=== PATIENT | female | born 1985 | race Caucasian/White ===

== ENCOUNTER 2017-05-15 19:19 | Emergency (ER) | payer MEDICAID ==
--- NOTE | 2017-05-15 23:11 | EDM.PDOC ---
ED HPI GENERAL MEDICAL PROBLEM - General Chief Complaint: Respiratory Problem Stated Complaint: COLD FOR A WEEK NOT GETTING BETTER Time Seen by Provider: 05/15/17 19:38 Source of Information: Reports: Patient History Limitations: Reports: No Limitations - History of Present Illness INITIAL COMMENTS - FREE TEXT/NARRATIVE: This is a 31-year-old female. Since last a week ago she's been having cold and congestion noted a cough on Thursday runny nose and began having a sore throat and then on Thursday and Thursday of this week she had a low-grade fever of 101-102. The fever seems to have resolved at this time. She did have some body aches on Thursday as well. She complains of congestion she complains of a sore throat complains of cough. She has no nausea vomiting no abdominal pain. She comes to the ER for evaluation. - Related Data Allergies Allergy/AdvReac Type Severity Reaction Status Date / Time cephalexin [From Keflex] Allergy Hives Verified 05/15/17 19:33 ibuprofen [From Motrin] Allergy Hives Verified 05/15/17 19:33 Penicillins Allergy Hives Verified 05/15/17 19:33 Home Meds: Home Meds Azithromycin [IJD: Azithromycin] 250 mg PO DAILY #6 tab 05/15/17 [Rx] Past Medical History Psychiatric History: Reports: Anxiety - Past Surgical History HEENT Surgical History: Reports: Tonsillectomy GI Surgical History: Reports: Cholecystectomy Female Surgical History: Reports: Tubal Ligation Social & Family History - Tobacco Use Smoking Status *Q: Never Smoker - Caffeine Use Caffeine Use: Reports: Soda, Tea - Recreational Drug Use Recreational Drug Use: No ED ROS GENERAL - Review of Systems Review Of Systems: See Below Constitutional: Reports: Fever, Chills, Malaise HEENT: Reports: Rhinitis, Throat Pain Respiratory: Reports: Cough. Denies: Shortness of Breath, Wheezing Cardiovascular: Reports: No Symptoms Endocrine: Reports: No Symptoms GI/Abdominal: Reports: No Symptoms : Reports: No Symptoms Musculoskeletal: Reports: No Symptoms Skin: Reports: No Symptoms Neurological: Reports: No Symptoms Psychiatric: Reports: No Symptoms ED EXAM, GENERAL - Physical Exam Exam: See Below Exam Limited By: No Limitations General Appearance: Alert, WD/WN, No Apparent Distress Eye Exam: Bilateral Eye: Normal Inspection Ears: Normal External Exam, Normal Canal, Normal TMs Nose: Normal Inspection, Nasal Drainage Throat/Mouth: Normal Inspection, Normal Lips, Normal Voice, No Airway Compromise , Other (Tonsils are inflamed but no exudates are noted) Head: Normocephalic Neck: Supple Respiratory/Chest: No Respiratory Distress, Lungs Clear, Normal Breath Sounds Cardiovascular: Regular Rate, Rhythm, No Murmur GI/Abdominal: Soft, Non-Tender Back Exam: Full Range of Motion Extremities: Normal Inspection, Normal Range of Motion Neurological: Alert, Oriented Psychiatric: Normal Affect, Normal Mood Skin Exam: Warm, Dry Course - Vital Signs Last Recorded V/S: Last Vital Signs Temp 97.4 F 05/15/17 19:33 Pulse 94 05/15/17 19:33 Resp 16 05/15/17 19:33 BP 120/81 05/15/17 19:33 Pulse Ox 94 L 05/15/17 19:33 - Orders/Labs/Meds Orders: Active Orders 24 hr Category Date Time Status Chest 2V [CR] Stat Exams 05/15/17 20:00 Taken Labs: Laboratory Tests 05/15/17 Range/Units 20:14 WBC 4.02 (3.98-10.04) K/mm3 RBC 4.82 (3.98-5.22) M/mm3 Hgb 12.1 (11.2-15.7) gm/L Hct 37.9 (34.1-44.9) % MCV 78.6 L (79.4-94.8) fl MCH 25.1 L (25.6-32.2) pg MCHC 31.9 L (32.2-35.5) g/dl RDW Std Deviation 44.0 (36.4-46.3) fL Plt Count 233 (182-369) K/mm3 MPV 9.6 (9.4-12.3) fl Neut % (Auto) 43.8 (34.0-71.1) % Lymph % (Auto) 41.5 (19.3-51.7) % [place] % (Auto) 9.7 (4.7-12.5) % Eos % (Auto) 4.5 (0.7-5.8) Baso % (Auto) 0.5 (0.1-1.2) % Neut # (Auto) 1.76 (1.56-6.13) K/mm3 Lymph # (Auto) 1.67 (1.18-3.74) K/mm3 [place] # (Auto) 0.39 H (0.24-0.36) K/mm3 Eos # (Auto) 0.18 (0.04-0.36) K/mm3 Baso # (Auto) 0.02 (0.01-0.08) K/mm3 - Radiology Interpretation Free Text/Narrative:: Chest x-ray does not show any acute changes. - Re-Assessments/Exams Free Text/Narrative Re-Assessment/Exam: 05/15/17 23:07 I spoke to the patient regarding her test results. The chest x-ray does not show any acute changes, the flu was negative the CBC was normal but she does have a positive strep screen. Departure - Departure Time of Disposition: 23:07 Disposition: Home, Self-Care 01 Condition: Good Clinical Impression: Strep pharyngitis Upper respiratory infection Qualifiers: URI type: unspecified URI Qualified Code(s): J06.9 - Acute upper respiratory infection, unspecified Acute bronchitis Qualifiers: Bronchitis organism: unspecified organism Qualified Code(s): J20.9 - Acute bronchitis, unspecified - Discharge Information Prescriptions: Azithromycin [IJD: Azithromycin] 250 mg PO DAILY #6 tab Referrals: Regina Camargo, [employer] [Primary Care Provider] - Forms: ED Department Discharge, ED Return to Work/School Form Additional Instructions: Rest and sleep as much as possible, drink lots of fluids and avoid sugar since strep loves sugar, get the antibiotics tomorrow and start taking them as prescribed, recheck with your family doctor later this week, return to the ER if your symptoms worsen, be certain to take some Tylenol or ibuprofen as needed for fever - My Orders Last 24 Hours: My Active Orders 05/15/17 20:00 Chest 2V [CR] Stat - Assessment/Plan Last 24 Hours: My Active Orders 05/15/17 20:00 Chest 2V [CR] Stat
--- NOTE | 2017-05-17 17:47 | CR ---
Chest: Two views of the chest were obtained. Comparison: No prior chest x-ray. Heart size and mediastinum are normal. Lungs are clear. Bony structures are unremarkable. Impression: 1. Nothing acute is identified on two-view chest x-ray. Diagnostic code #1
== END 2017-05-15 23:30 | disposition home or self-care (01) ==
LOC: JD.ED 19:19
DX: J02.0 Streptococcal pharyngitis (principal); J20.9 Acute bronchitis, unspecified; Z79.2 Long term (current) use of antibiotics; Z88.0 Allergy status to penicillin; Z88.1 Allergy status to other antibiotic agents; Z88.6 Allergy status to analgesic agent
CPT/HCPCS: 36415; 71046; 71046-26; 85025; 87430; 87804; 99284

== ENCOUNTER 2017-12-08 19:37 | Emergency (ER) | payer MEDICAID ==
--- NOTE | 2017-12-08 20:33 | EDM.PDOC ---
ED HPI GENERAL MEDICAL PROBLEM - General Chief Complaint: TIN FLIPPER Problem Stated Complaint: HAD PERIOD FOR 2 WEEKS Time Seen by Provider: 12/08/17 20:19 Source of Information: Reports: Patient History Limitations: Reports: No Limitations - History of Present Illness INITIAL COMMENTS - FREE TEXT/NARRATIVE: Patient is a 32-year-old female with a history anxiety/depression, irregular periods, and tubal ligation presents to the ED with a 2 week history of heavy vaginal bleeding. States she's been saturating 2 pads every 2 hours since onset. This is abnormal for her. She does have a history of irregular periods but not as heavy. She has some lower abdominal cramping consistent with menstrual cycle. She attempted to make appointment with PCP put cannot be seen in 2 weeks. There's been no fever, nausea or vomiting, dysuria, or abnormal vaginal discharge. There is no family history of endometrial/ovarian cancer. She has no history of uterine fibroids. history includes 2 para 2. She is currently on Lexapro only. Surgical history tubal ligation, cholecystectomy, and tonsillectomy. In the past been treated for Trichomonas 15 years ago. Patient does not smoke, use alcohol, use recreational drugs. She denies any fever, night sweats, recent weight loss, bloating sensation, significant pain, dysuria, dizziness, or abnormal vaginal discharge. - Related Data Allergies Allergy/AdvReac Type Severity Reaction Status Date / Time cephalexin [From Keflex] Allergy Hives Verified 12/08/17 19:46 ibuprofen [From Motrin] Allergy Hives Verified 12/08/17 19:46 Penicillins Allergy Hives Verified 12/08/17 19:46 Home Meds: Home Meds Escitalopram [Lexapro] 10 mg PO DAILY 12/08/17 [History] Past Medical History Psychiatric History: Reports: Anxiety, Depression - Past Surgical History HEENT Surgical History: Reports: Tonsillectomy GI Surgical History: Reports: Cholecystectomy Female Surgical History: Reports: Tubal Ligation, Other (See Below) Other Female Surgeries/Procedures: irregular periods Social & Family History - Family History Family Medical History: Noncontributory - Tobacco Use Smoking Status *Q: Never Smoker - Caffeine Use Caffeine Use: Reports: Energy Drinks, Soda, Tea - Recreational Drug Use Recreational Drug Use: No ED ROS GENERAL - Review of Systems Review Of Systems: ROS reveals no pertinent complaints other than HPI. ED EXAM, GENERAL - Physical Exam Exam: See Below Exam Limited By: No Limitations General Appearance: Alert, WD/WN, No Apparent Distress Eye Exam: Bilateral Eye: Normal Inspection Ears: Hearing Grossly Normal Nose: Normal Inspection Throat/Mouth: Normal Inspection, Normal Oropharynx, Normal Voice, No Airway Compromise Neck: Normal Inspection, Supple Respiratory/Chest: No Respiratory Distress, Lungs Clear, Normal Breath Sounds, Chest Non-Tender Cardiovascular: Normal Peripheral Pulses, Regular Rate, Rhythm Peripheral Pulses: 2+: Radial (L) GI/Abdominal: Normal Bowel Sounds, Soft, Non-Tender, No Organomegaly, No Distention Back Exam: Normal Inspection Extremities: Normal Inspection, Normal Range of Motion, Non-Tender Neurological: Alert, Oriented, CN II-XII Intact, Normal Cognition, No Motor/ Sensory Deficits Psychiatric: Normal Affect, Normal Mood Skin Exam: Warm, Dry, Intact, Normal Color Course - Vital Signs Last Recorded V/S: Last Vital Signs Temp 97.6 F 12/08/17 19:43 Pulse 100 12/08/17 19:43 Resp 18 12/08/17 19:43 BP 126/81 12/08/17 19:43 Pulse Ox 100 12/08/17 19:43 - Orders/Labs/Meds Orders: Active Orders 24 hr Category Date Time Status HCG QUALITATIVE,URINE [URCHEM] Stat Lab 12/08/17 20:46 Ordered Labs: Laboratory Tests 12/08/17 12/08/17 12/08/17 Range/Units 20:46 20:46 20:50 WBC 7.90 (3.98-10.04) K/mm3 RBC 4.25 (3.98-5.22) M/mm3 Hgb 10.9 L (11.2-15.7) gm/L Hct 34.4 (34.1-44.9) % MCV 80.9 (79.4-94.8) fl MCH 25.6 (25.6-32.2) pg MCHC 31.7 L (32.2-35.5) g/dl RDW Std Deviation 50.9 H (36.4-46.3) fL Plt Count 208 (182-369) K/mm3 MPV 9.1 L (9.4-12.3) fl Neutrophils % (Manual) 46 (40-60) % Band Neutrophils % 0 (0-10) % Lymphocytes % (Manual) 48 H (20-40) % Atypical Lymphs % 0 % Monocytes % (Manual) 5 (2-10) % Eosinophils % (Manual) 1 (0.7-5.8) % Basophils % (Manual) 0 L (0.1-1.2) Platelet Estimate Adequate RBC Morph Comment Normal Sodium (136-145) mEq/L Potassium (3.5-5.1) mEq/L Chloride (98-107) mEq/L Carbon Dioxide (21-32) mEq/L Anion Gap (5-15) BUN (7-18) mg/dL Creatinine (0.55-1.02) mg/dL Est Cr Clr Drug Dosing mL/min Estimated GFR (MDRD) (>60) mL/min BUN/Creatinine Ratio (14-18) Glucose (74-106) mg/dL Calcium (8.5-10.1) mg/dL Total Bilirubin (0.2-1.0) mg/dL AST (15-37) U/L ALT (14-59) U/L Alkaline Phosphatase (46-116) U/L C-Reactive Protein (<1.0) mg/dL Total Protein (6.4-8.2) g/dl Albumin (3.4-5.0) g/dl Globulin gm/dL Albumin/Globulin Ratio (1-2) TSH 3rd Generation (0.358-3.74) uIU/mL Urine Color Dark yellow (Yellow) Urine Appearance Cloudy H (Clear) Urine pH 5.5 (5.0-8.0) Ur Specific [place] > or = 1.030 (1.005-1.030) Urine Protein 1+ H (Negative) Urine Glucose (UA) Negative (Negative) Urine Ketones Negative (Negative) Urine Occult Blood 3+ H (Negative) Urine Nitrite Negative (Negative) Urine Bilirubin Negative (Negative) Urine Urobilinogen 0.2 (0.2-1.0) Ur Leukocyte Esterase Negative (Negative) Urine RBC >100 H (0-5) /hpf Urine WBC 0-5 (0-5) /hpf Ur Epithelial Cells 5-10 H (0-5) /hpf Urine Bacteria Many H (FEW) /hpf Urine Mucus Not seen (FEW) /hpf Urine HCG, Qual Negative (NEGATIVE) 12/08/17 Range/Units 20:50 WBC (3.98-10.04) K/mm3 RBC (3.98-5.22) M/mm3 Hgb (11.2-15.7) gm/L Hct (34.1-44.9) % MCV (79.4-94.8) fl MCH (25.6-32.2) pg MCHC (32.2-35.5) g/dl RDW Std Deviation (36.4-46.3) fL Plt Count (182-369) K/mm3 MPV (9.4-12.3) fl Neutrophils % (Manual) (40-60) % Band Neutrophils % (0-10) % Lymphocytes % (Manual) (20-40) % Atypical Lymphs % % Monocytes % (Manual) (2-10) % Eosinophils % (Manual) (0.7-5.8) % Basophils % (Manual) (0.1-1.2) Platelet Estimate RBC Morph Comment Sodium 142 (136-145) mEq/L Potassium 3.6 (3.5-5.1) mEq/L Chloride 106 (98-107) mEq/L Carbon Dioxide 27 (21-32) mEq/L Anion Gap 12.6 (5-15) BUN 13 (7-18) mg/dL Creatinine 0.8 (0.55-1.02) mg/dL Est Cr Clr Drug Dosing 99.08 mL/min Estimated GFR (MDRD) > 60 (>60) mL/min BUN/Creatinine Ratio 16.3 (14-18) Glucose 108 H (74-106) mg/dL Calcium 8.4 L (8.5-10.1) mg/dL Total Bilirubin 0.5 (0.2-1.0) mg/dL AST 24 (15-37) U/L ALT 53 (14-59) U/L Alkaline Phosphatase 98 (46-116) U/L C-Reactive Protein 2.0 H* (<1.0) mg/dL Total Protein 6.8 (6.4-8.2) g/dl Albumin 3.2 L (3.4-5.0) g/dl Globulin 3.6 gm/dL Albumin/Globulin Ratio 0.9 L (1-2) TSH 3rd Generation 4.576 H (0.358-3.74) uIU/mL Urine Color (Yellow) Urine Appearance (Clear) Urine pH (5.0-8.0) Ur Specific [place] (1.005-1.030) Urine Protein (Negative) Urine Glucose (UA) (Negative) Urine Ketones (Negative) Urine Occult Blood (Negative) Urine Nitrite (Negative) Urine Bilirubin (Negative) Urine Urobilinogen (0.2-1.0) Ur Leukocyte Esterase (Negative) Urine RBC (0-5) /hpf Urine WBC (0-5) /hpf Ur Epithelial Cells (0-5) /hpf Urine Bacteria (FEW) /hpf Urine Mucus (FEW) /hpf Urine HCG, Qual (NEGATIVE) - Re-Assessments/Exams Free Text/Narrative Re-Assessment/Exam: Initial lab studies will include: CBC, CBC, chem 14, CRP, TSH, and UA. HGB 10.9. HCG negative. I Did speak with Dr. Castaneda. Does not suggest any further studies or treatments here in the E.D. Have the patient call her office in the a.m. for appt to be evaluated this coming week. May make an appt with Dr. Bosch her partner if unable to get in with her. 12/08/17 21:55 TSH is 4.576. Cr 0.8. CRP 2.0. 12/08/17 UA cloudy, protein 1+, occult blood 3+, Urine RBC >100, Urine bacteria many, epithelial cells 5-10. Discussed conversation with Dr. Castaneda with the patient. She agrees with plan of following up in the next week. The patient remained hemodynamically stable while under my care in the E.D. I discussed the concerning symptoms for which to return to the E.D. with the patient. The patient verbalized understanding. All questions were answered. Departure - Departure Time of Disposition: 21:24 Disposition: Home, Self-Care 01 Condition: Good Clinical Impression: Metrorrhagia, Elevated TSH - Discharge Information Instructions: Abnormal Uterine Bleeding, Metrorrhagia Referrals: Edilma Cadena PA-C [Primary Care Provider] - Kathy Castaneda MD [Physician] - Rita Bosch MD [Physician] - Yunier Herrera MD [Physician] - Naga Barnard MD [Physician] - Forms: ED Department Discharge Additional Instructions: As discussed please follow up with a TIN FLIP[facility] specialist of your choice. Call and make an appointment to be evaluated in the next week. Provided contact information for Dr. Castaneda the TIN FLIP[facility] specialist I spoke to earlier this evening in relation to your situation. In addition her partner is Dr. Bosch. Dr. Herrera and Dr. Barnard both work at [facility] and to be contacted for appointments as well. Please monitor the frequency bleeding. Return to the ED if you develop any new or worsening symptoms. In addition your TSH levels which is a indicator on how your thyroid is functioning was high. This is suggesting you may have hypothyroidism which can be easily treated with medications. Additional testing is required. This also could be a culprit to your abnormal vaginal bleeding. - My Orders Last 24 Hours: My Active Orders 12/08/17 20:46 HCG QUALITATIVE,URINE [URCHEM] Stat - Assessment/Plan Last 24 Hours: My Active Orders 12/08/17 20:46 HCG QUALITATIVE,URINE [URCHEM] Stat
== END 2017-12-08 22:08 | disposition home or self-care (01) ==
LOC: JD.ED 19:37
DX: N92.1 Excessive and frequent menstruation with irregular cycle (principal); R79.89 Other specified abnormal findings of blood chemistry; Z88.0 Allergy status to penicillin; Z88.1 Allergy status to other antibiotic agents
CPT/HCPCS: 36415; 80053; 81001; 81025; 84443; 85007; 85027; 86140; 99283; 99284

== ENCOUNTER 2018-08-10 01:30 | Emergency (ER) | payer MEDICAID ==
[2018-08-10] MEDS ORDERED: Acetaminophen/oxyCODONE 325-5 MG Tab PO ONE (02:21)
[2018-08-10] MEDS ORDERED: Amoxicillin 500 MG Cap PO ONE (02:21)
--- NOTE | 2018-08-10 02:25 | EDM.PDOC ---
ED HPI GENERAL MEDICAL PROBLEM - General Chief Complaint: ENT Problem Stated Complaint: RIGHT SIDE FACE TOOTH PAIN MOVING TO EAR Time Seen by Provider: 08/10/18 01:53 Source of Information: Reports: Patient, RN Notes Reviewed - History of Present Illness INITIAL COMMENTS - FREE TEXT/NARRATIVE: 32 year old female presents with dental pain. R lower post molar cavitated and broke off about 2 yrs ago. Started becoming painful a few days ago and now having severe pain. some chills but no fever. Right Lower Tooth/Teeth Pain Score (Numeric/FACES): 7 - Related Data Allergies Allergy/AdvReac Type Severity Reaction Status Date / Time cephalexin [From Keflex] Allergy Hives Verified 12/08/17 19:46 ibuprofen [From Motrin] Allergy Hives Verified 12/08/17 19:46 Penicillins Allergy Hives Verified 12/08/17 19:46 Home Meds: Home Meds Escitalopram [Lexapro] 10 mg PO DAILY 12/08/17 [History] Acetaminophen/HYDROcodone [[place] 325-5 MG] 1 tab PO Q6H PRN #20 tablet 08/10/18 [Rx] Past Medical History Psychiatric History: Reports: Anxiety, Depression - Past Surgical History HEENT Surgical History: Reports: Tonsillectomy GI Surgical History: Reports: Cholecystectomy Female Surgical History: Reports: Tubal Ligation, Other (See Below) Other Female Surgeries/Procedures: irregular periods Social & Family History - Family History Family Medical History: Noncontributory - Tobacco Use Smoking Status *Q: Never Smoker - Caffeine Use Caffeine Use: Reports: Soda, Tea - Recreational Drug Use Recreational Drug Use: No ED ROS ENT - Review of Systems Review Of Systems: See Below Constitutional: Reports: Chills. Denies: Fever HEENT: Reports: Dental Pain. Denies: Throat Pain Respiratory: Denies: Shortness of Breath Cardiovascular: Denies: Chest Pain GI/Abdominal: Denies: Abdominal Pain, Vomiting Musculoskeletal: Reports: No Symptoms Skin: Reports: No Symptoms ED EXAM, ENT - Physical Exam Exam: See Below General Appearance: Alert, Moderate Distress Mouth/Throat: Other (R lower post molar is broken off at gum line, gum is mildly swollen, no drainage) Head: Facial Swelling (R face very mildly swollen, tender along R lower post jaw ) Neck: Supple. No: Lymphadenopathy (L), Lymphadenopathy (R) Respiratory/Chest: No Respiratory Distress Neurological: Alert Skin: Warm, Dry, Normal Color Course - Vital Signs Last Recorded V/S: Last Vital Signs Temp 97.7 F 08/10/18 01:38 Pulse 97 08/10/18 01:38 Resp 18 08/10/18 01:38 BP 150/89 H 08/10/18 01:38 Pulse Ox 98 08/10/18 01:38 - Orders/Labs/Meds Meds: Medications Discontinued Medications Generic Name Dose Route Start Last Admin Trade Name Gustavo PRN Reason Stop Dose Admin Amoxicillin 1,000 mg 08/10/18 02:21 08/10/18 02:29 Amoxil PO 08/10/18 02:22 1,000 mg ONETIME ONE Administration Oxycodone/Acetaminophen 1 tab 08/10/18 02:21 08/10/18 02:29 Percocet 325-5 Mg PO 08/10/18 02:22 1 tab ONETIME ONE Administration - Re-Assessments/Exams Free Text/Narrative Re-Assessment/Exam: 08/10/18 02:24 PCN listed as allergy, however when asked about it she states it was 15 year ago and developed a small rash "on her face", no generalized hives or breathing difficulty so she does not know if that was a true allergic reaction or not. Departure - Departure Time of Disposition: 02:31 Disposition: Home, Self-Care 01 Condition: Fair Clinical Impression: Pain, dental - Discharge Information Prescriptions: Acetaminophen/HYDROcodone [[place] 325-5 MG] 1 tab PO Q6H PRN #20 tablet PRN Reason: Pain Referrals: Edilma Cadena PA-C [Primary Care Provider] - Forms: ED Department Discharge Additional Instructions: amoxicillin antibioitc 1000 mg or two 500 mg tablets twice daily for 1 week or until gone. tylenol alternating with ibuprofen for mild to moderate pain or hydrocodone if needed for severe pain. Do not take tylenol and hydrocodone at the same time. See dentist as soon as possible to have the tooth extracted.
== END 2018-08-10 02:42 | disposition home or self-care (01) ==
LOC: JD.ED 01:30
DX: K08.89 Other specified disorders of teeth and supporting structures (principal); K03.81 Cracked tooth; Z79.899 Other long term (current) drug therapy; F41.9 Anxiety disorder, unspecified; F32.9 Major depressive disorder, single episode, unspecified; Z88.0 Allergy status to penicillin; Z88.1 Allergy status to other antibiotic agents; Z88.6 Allergy status to analgesic agent
CPT/HCPCS: 99282; A9270; 99283

== ENCOUNTER 2019-03-17 06:09 | Emergency (ER) | payer MEDICAID, OTHER ==
[2019-03-17] MEDS ORDERED: Acetaminophen/oxyCODONE 325-5 MG Tab PO ONE (06:32)
[2019-03-17] MEDS ORDERED: Ondansetron 4 MG Tab.DIS PO PRN (06:32)
--- NOTE | 2019-03-17 06:37 | EDM.PDOC ---
ED HPI GENERAL MEDICAL PROBLEM - General Chief Complaint: Back Pain or Injury Stated Complaint: BACK PAIN Time Seen by Provider: 03/17/19 06:30 Source of Information: Reports: Patient History Limitations: Reports: No Limitations - History of Present Illness INITIAL COMMENTS - FREE TEXT/NARRATIVE: 33-year-old female attends the ED due to increasing left-sided low back pain. She's had pain in her lower backs for the last week and is progressively getting worse. Pain is now radiating into the left groin along the iliac crest. He has a very difficult time getting up out of bed or from a seated position. Has not noticed any change in her urine. Movement certainly makes the pain much worse. No previous problems with her lower back. No recent slips or falls. She is markedly overweight. Describes the pain as being constant, aggravated by movement. It is not ra radiating down the leg. She does have some pain in her left buttock. Onset: Sudden Onset Date: 03/10/19 Duration: Day(s):, Constant, Getting Worse Location: Reports: Back (Left low back. She can feel it up as high as her shoulder blade on the left side) Quality: Reports: Ache ( also the pain is lower back referred to the left hip area.), Other (Constant deep aching pain occasionally sharp and stabbing with certain movements) Severity: Severe (8 out of 10) Improves with: Reports: Medication (Aleve 2 tablets every 8 hours has not been helping much we are to relieve the pain.) Worsens with: Reports: Movement Context: Denies: Activity, Exercise (Especially trying to get up from the lying down position.), Lifting, Sick Contact, Trauma, Other Associated Symptoms: Denies: No Other Symptoms, Confusion, Chest Pain, Cough, cough w sputum, Diaphoresis, Fever/Chills, Headaches, Loss of Appetite, Malaise , Nausea/Vomiting, Rash, Seizure, Shortness of Breath, Syncope, Weakness 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 (Aleve 2 tablets every 8 hours.) Left Lower Back Pain Score (Numeric/FACES): 8 - Related Data Allergies Allergy/AdvReac Type Severity Reaction Status Date / Time cephalexin [From Keflex] Allergy Hives Verified 03/17/19 06:21 ibuprofen [From Motrin] Allergy Hives Verified 03/17/19 06:21 Penicillins Allergy Hives Verified 03/17/19 06:21 Home Meds: Home Meds Escitalopram [Lexapro] 10 mg PO DAILY 12/08/17 [History] Diclofenac Sodium [Voltaren] 75 mg PO BIDMEALS #20 tab.cr 03/17/19 [Rx] oxyCODONE HCl/Acetaminophen [Percocet 10-325 mg Tablet] 1 each PO Q4H #28 tablet 03/17/19 [Rx] predniSONE [Prednisone] 20 mg PO ASDIRECTED #18 tablet 03/17/19 [Rx] Past Medical History Psychiatric History: Reports: Anxiety, Depression Endocrine/Metabolic History: Reports: Obesity/BMI 30+ - Past Surgical History HEENT Surgical History: Reports: Tonsillectomy GI Surgical History: Reports: Cholecystectomy Female Surgical History: Reports: Tubal Ligation, Other (See Below) Other Female Surgeries/Procedures: irregular periods Social & Family History - Family History Family Medical History: Noncontributory - Tobacco Use Smoking Status *Q: Never Smoker Second Hand Smoke Exposure: No - Caffeine Use Caffeine Use: Reports: None - Recreational Drug Use Recreational Drug Use: No - Living Situation & Occupation Living situation: Reports: Single Occupation: Employed ED ROS GENERAL - Review of Systems Review Of Systems: See Below Constitutional: Reports: Fatigue. Denies: Fever, Chills, Malaise, Weakness HEENT: Reports: No Symptoms (From not sleeping well.) Respiratory: Reports: No Symptoms Cardiovascular: Reports: Dyspnea on Exertion, Lightheadedness (Occasionally with standing.). Denies: Chest Pain, Blood Pressure Problem, Claudication, Orthopnea Endocrine: Reports: Fatigue GI/Abdominal: Reports: No Symptoms : Reports: Frequency Musculoskeletal: Reports: Back Pain Skin: Reports: No Symptoms (Recent problems with low back pain has not been a chronic problem for her.) Neurological: Reports: No Symptoms Psychiatric: Reports: Anxiety, Depression Hematologic/Lymphatic: Reports: No Symptoms (On Lexapro 20 mg once daily) Immunologic: Reports: No Symptoms ED EXAM,LOWER BACK PAIN/INJURY - Physical Exam Exam: See Below Exam Limited By: No Limitations General Appearance: Alert, WD/WN, Moderate Distress, Other (Vital signs are stable. Blood pressure is only 108/83.) GI/Abdominal: Normal Bowel Sounds, Soft, Non-Tender, No Organomegaly, No Mass, Pelvis Stable, Other (Abdominal girth limits ability to palpate solid organs.) Back Exam: Normal Inspection, Decreased Range of Motion, Paraspinal Tenderness ( She has paraspinal muscle tenderness all the way up to thoracic 7 vertebra on the left side.), Vertebral Tenderness (12 point of tenderness is over the L2-3 and L3-4 facet joints on the left side. There is also moderate left sacroiliac pain in the upper two thirds of the joint. No pain in the right sacroiliac joint ). No: Full Range of Motion, CVA Tenderness (L), CVA Tenderness (R) Neurological: Alert, Normal Mood/Affect, Normal Dorsiflexion, CN II-XII Intact, Normal Plantar Flexion, Normal Gait, Normal Reflexes, Other (Clinical no evidence of nerve root compression.). No: Straight Leg Raise (L), Straight Leg Raise (R) Psychiatric: Normal Affect, Normal Mood Skin Exam: Warm, Dry, Intact, Normal Color, No Rash Course - Vital Signs Last Recorded V/S: Last Vital Signs Temp 36.3 C 03/17/19 06:16 Pulse 90 03/17/19 06:16 Resp 18 03/17/19 06:16 BP 108/83 03/17/19 06:16 Pulse Ox 100 03/17/19 06:16 - Orders/Labs/Meds Orders: Active Orders 24 hr Category Date Time Status Ondansetron [Zofran ODT] Med 03/17/19 06:32 Active 4 mg PO Q4H PRN Medication Orders Ondansetron HCl (Zofran Odt) 4 mg PO Q4H PRN PRN Reason: Nausea/Vomiting Last Admin: 03/17/19 06:49 Dose: 4 mg Meds: Medications Generic Name Dose Route Start Last Admin Trade Name Freq PRN Reason Stop Dose Admin Ondansetron HCl 4 mg 03/17/19 06:32 03/17/19 06:49 Zofran Odt PO 4 mg Q4H PRN Administration Nausea/Vomiting Discontinued Medications Generic Name Dose Route Start Last Admin Trade Name Freq PRN Reason Stop Dose Admin Oxycodone/Acetaminophen 2 tab 03/17/19 06:32 03/17/19 06:49 Percocet 325-5 Mg PO 03/17/19 06:33 2 tab ONETIME ONE Administration - Radiology Interpretation Free Text/Narrative:: 33-year-old female presents to the ED for evaluation of left lower back pain gradually worsening over the last week. No known falls or injuries. Examination reveals paraspinal muscle spasm from thoracic [address] down to L5 on the left side. Point of maximal tenderness is over the L2-3 and L3-4 facet joints. Also moderate tenderness throughout at least two thirds of the superior aspect of the left sacroiliac joint in comparison to the right. I am going to have CT scan done of her lower back as I think plain films will not be useful due to her size. She'll be given 2 Percocet 5/3/25 milligram tablets by mouth with Zofran 4 mg sublingual for pain relief. - Re-Assessments/Exams Free Text/Narrative Re-Assessment/Exam: 03/17/19 07:04 CT of the lumbar spine reveals no obvious compression fractures. 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 No obvious disc herniations and no significant facet joint arthritis. Her pain clinically is coming from facet joint irritation. I am going to place her on Percocet tabs 5/325 mg one or 2 every 4-6 hours as needed for pain relief in combination with Voltaren 75 mg extended release twice daily for 10 days. She will also be placed on prednisone 20 mg twice daily for 6 days with breakfast and supper and then one in the morning only for another 6 days to reduce inflammation and pain. He will be placed off of work for the next week and advise follow-up with your personal care physician before deciding if she can return to work. 03/17/19 07:13 , report available from Dr. Pires--radiologist. Findings T12-L1 posterior disc is preserved no central canal stenosis or neural foraminal stenosis identified. L1-2 level posterior disc is preserved no central canal stenosis or neural foraminal stenosis identified. L2-3 posterior disc is preserved no central canal stenosis or neural foraminal stenosis identified. L3- 4 very minimal circumferential disc bulge is noted. Posterior disc maintains a concrete margin. No central canal stenosis or neural foraminal stenosis is identified. At the L4-5 level mild disc space narrowing is seen. Large disc herniation appears to be present posteriorly to the midline and slightly eccentric to the right side. Of note the patient's pain is on the left side. This causes significant central canal stenosis. Neural foramina pain where the nerve root exit. L5-S1 mild disc space narrowing noted. Slight circumferential disc bulge is noted. No central canal stenosis or neural foraminal stenosis identified. Slight osteophytes are noted anteriorly at this level as well as degenerative endplate signal changes. Impression: large disc herniation at L4-5 causing central canal stenosis. Departure - Departure Time of Disposition: 07:05 Disposition: Home, Self-Care 01 Condition: Fair Clinical Impression: Facet joint disease of lumbosacral region, Degenerative lumbar disc - Discharge Information *PRESCRIPTION DRUG MONITORING PROGRAM REVIEWED*: Not Applicable *COPY OF PRESCRIPTION DRUG MONITORING REPORT IN PATIENT YVROSE: Not Applicable Prescriptions: Diclofenac Sodium [Voltaren] 75 mg PO BIDMEALS #20 tab.cr oxyCODONE HCl/Acetaminophen [Percocet 10-325 mg Tablet] 1 each PO Q4H #28 tablet predniSONE [Prednisone] 20 mg PO ASDIRECTED #18 tablet Instructions: Facet Syndrome, Pain Medicine Instructions, [id number] Referrals: Edilma Cadena PA-C [Primary Care Provider] - Forms: ED Department Discharge, ED Return to Work/School Form Additional Instructions: Evaluation the emergency room today in regards to gradually worsening left- sided low back pain radiating into the left hip and groin area. Examination reveals marked paraspinal muscle spasm on the left side coming from the lumbar vertebra which are the lower 5 bones in your back. The CT scan of the lumbar spine does not reveal any obvious deformities of the bones or significant arthritis in the facet joints. It does however revealed a large disc bulge centrally into the bile canal at the lumbar 4-5 level. It appears to be present posteriorly to the midline and slightly eccentric to the right side which does not correlate with your area of pain. Her 40s unclear if this is the cause of your current pain syndrome. Suggest off work for the next week until follow-up with personal care physician in one week's time to determine if you're fit to return to work. If you are not better in one week's time day will need to be referred to physiotherapy. Treatment is to be anti-inflammatory medication Voltaren 75 mg twice daily for the next 10 days. You are to discontinue using Aleve. Use prednisone 20 mg twice daily with breakfast and supper for 6 days and then 1 in the morning only for another 6 days to further reduce inflammation and pain. Pain medication is to be Percocet 10/325 mg --ideally one tablet every 4-6 hours necessary for pain relief. Suggest MiraLAX powder 17 g once daily to prevent constipation caused by pain medications. Suggest follow- up with her personal care provider in 7 days time to see if you are fit to return to work. Sepsis Event Note - Evaluation Sepsis Screening Result: No Definite Risk - Focused Exam Vital Signs: Vital Signs Temp Pulse Resp BP Pulse Ox 03/17/19 06:16 36.3 C 90 18 108/83 100 Date Exam was Performed: 03/17/19 Time Exam was Performed: : - My Orders Last 24 Hours: My Active Orders 03/17/19 06:32 Ondansetron [Zofran ODT] 4 mg PO Q4H PRN - Assessment/Plan Last 24 Hours: My Active Orders 03/17/19 06:32 Ondansetron [Zofran ODT] 4 mg PO Q4H PRN
--- NOTE | 2019-03-17 07:09 | CT ---
CT lumbar spine Technique: Multiple axial sections were obtained from the lower T12 level inferiorly through the lower sacral level. Reconstructed sagittal and coronal images were reviewed. Comparison: No prior lumbar spine imaging is available. Findings: T12-L1: Posterior disc is preserved. No central canal stenosis or neural foraminal stenosis is seen. L1-2: Posterior disc is preserved. No central canal stenosis or neural foraminal stenosis is seen. L2-3: Posterior disc is preserved. No central canal stenosis or neural foraminal stenosis is seen. L3-4: Very minimal circumferential disc bulge is noted. Posterior disc maintains a concave margin. No central canal stenosis or neural foraminal stenosis is seen. L4-5: Mild disc space narrowing is seen. Large disc herniation appears to be present posteriorly to the midline and slightly eccentric to the right side. This causes significant central canal stenosis. Neural foramina are patent where the nerve roots exit. L5-S1: Mild disc space narrowing is noted. Slight circumferential disc bulge is noted. No central canal stenosis or neural foraminal stenosis is seen. Slight osteophytes are noted anteriorly at this level as well as degenerative endplate signal change. No acute osseous finding is seen. Impression: 1. Large disc herniation at L4-5 causing central canal stenosis. 2. Other less prominent degenerative change as noted above. No acute osseous finding is seen. Diagnostic code #3 This report was dictated in [place] Standard Time
== END 2019-03-17 07:49 | disposition home or self-care (01) ==
LOC: JD.ED 06:09
DX: M53.87 Other specified dorsopathies, lumbosacral region (principal); M51.36 Other intervertebral disc degeneration, lumbar region; F41.9 Anxiety disorder, unspecified; F32.9 Major depressive disorder, single episode, unspecified; E66.9 Obesity, unspecified; Z68.39 Body mass index [BMI] 39.0-39.9, adult; Z88.1 Allergy status to other antibiotic agents; Z88.6 Allergy status to analgesic agent; Z88.0 Allergy status to penicillin; Z79.899 Other long term (current) drug therapy
CPT/HCPCS: 72131; 99283; A9270

== ENCOUNTER 2019-07-11 14:22 | Emergency (ER) | payer OTHER ==
--- NOTE | 2019-07-11 16:01 | EDM.PDOC ---
ED HPI GENERAL MEDICAL PROBLEM - General Chief Complaint: Back Pain or Injury Stated Complaint: BACK PAIN Time Seen by Provider: 07/11/19 15:06 Source of Information: Reports: Patient, RN Notes Reviewed History Limitations: Reports: No Limitations - History of Present Illness INITIAL COMMENTS - FREE TEXT/NARRATIVE: Patient is a 33-year-old female who presents to the ED for evaluation of ongoing back pain. Patient notes that she was seen here in March, had a CT done at that time, and diagnosed with bulging disc, review of those records demonstrate a small bulge on L3-L4, and a rather large bulge on L4-L5. Patient did go forward with PT, but states it did not really help much. Patient states that the pain has worsened over the last week again, states any sort of movement seems to aggravate this pain. 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 Patient's primary care provider is Edilma Cadena, she was supposed to have an outpatient MRI done through [facility], but however their machine is broken so she has not been able to get this. Patient states that the pain does radiate into her right leg as well. 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 Psychiatric History: Reports: Anxiety, Depression Endocrine/Metabolic History: Reports: Obesity/BMI 30+ - Infectious Disease History Infectious Disease History: Reports: Chicken Pox - Past Surgical History HEENT Surgical History: Reports: Tonsillectomy GI Surgical History: Reports: Cholecystectomy Female Surgical History: Reports: Tubal Ligation, Other (See Below) Other Female Surgeries/Procedures: irregular periods Social & Family History - Family History Family Medical History: Noncontributory - Tobacco Use Smoking Status *Q: Never Smoker Second Hand Smoke Exposure: No - Caffeine Use Caffeine Use: Reports: Soda, Tea - Recreational Drug Use Recreational Drug Use: No - Living Situation & Occupation Living situation: Reports: Single Occupation: Employed ED ROS GENERAL - Review of Systems Review Of Systems: Comprehensive ROS is negative, except as noted in HPI. ED EXAM,LOWER BACK PAIN/INJURY - Physical Exam Exam: See Below Exam Limited By: No Limitations General Appearance: Alert, WD/WN, No Apparent Distress Eye Exam: Bilateral Eye: EOMI, Normal Inspection, PERRL Throat/Mouth: Normal Inspection, Normal Lips, Normal Teeth, Normal Gums, Normal Oropharynx, Normal Voice, No Airway Compromise Head: Atraumatic, Normocephalic Respiratory/Chest: No Respiratory Distress, Lungs Clear, Normal Breath Sounds, No Accessory Muscle Use, Chest Non-Tender Cardiovascular: Normal Peripheral Pulses, Regular Rate, Rhythm, No Murmur GI/Abdominal: Normal Bowel Sounds, Soft, Non-Tender, No Distention, No Mass Extremities: Normal Inspection, Normal Capillary Refill Neurological: Alert, Normal Mood/Affect, Normal Dorsiflexion, CN II-XII Intact ( grossly), Normal Plantar Flexion, No Motor/Sensory Deficits, Oriented x 3, Straight Leg Raise (R). No: Normal Gait, Straight Leg Raise (L), Saddle Anesthesia Psychiatric: Normal Affect, Normal Mood Skin Exam: Warm, Dry, Intact, Normal Color, No Rash Course - Vital Signs Last Recorded V/S: Last Vital Signs Temp 97.8 F 07/11/19 15:00 Pulse 80 07/11/19 15:00 Resp 18 07/11/19 15:00 BP 125/75 07/11/19 15:00 Pulse Ox 97 07/11/19 15:00 - Re-Assessments/Exams Free Text/Narrative Re-Assessment/Exam: 07/11/19 15:59 Patient presents to the ED for ongoing back pain. Does sound like she has a lumbo-radicular pain in nature. I will provide her with a course of steroids, prednisone 20 mg twice daily for the next 5 days, then 20 mg once daily for the last 5. Should be given a few tablets of Percocet to take in case Tylenol does not provide much pain relief, and Norflex for muscle spasms. Patient be given an outpatient MRI order as well as she states that she is not able to get the MRI done through [facility] due to the machine being out for repairs. Departure - Departure Time of Disposition: 16:01 Disposition: Home, Self-Care 01 Condition: Fair Clinical Impression: L4-L5 disc bulge Low back pain Qualifiers: Chronicity: acute Back pain laterality: right Sciatica presence: with sciatica Sciatica laterality: sciatica of right side Qualified Code(s): M54.41 - Lumbago with sciatica, right side - Discharge Information *PRESCRIPTION DRUG MONITORING PROGRAM REVIEWED*: Yes *COPY OF PRESCRIPTION DRUG MONITORING REPORT IN PATIENT YVROSE: No Prescriptions: Acetaminophen/oxyCODONE [Percocet 325-5 MG] 1 each PO Q6H PRN #20 tab PRN Reason: Pain Orphenadrine [Norflex] 100 mg PO BID PRN #20 tab PRN Reason: Spasms predniSONE 20 mg PO ASDIRECTED #15 tab Instructions: Herniated Disk, [id number] Referrals: Edilma Cadena PA-C [Primary Care Provider] - Forms: ED Department Discharge Additional Instructions: You were evaluated in the ER today regarding your ongoing lower back pain. You have been provided with an outpatient MRI order, our radiology department will call to schedule you for this appointment. You have been given prescriptions for 3 different medications, one is a steroid to help with inflammation of the nerve, please take as directed, 1 is for Percocet, for pain not relieved by Tylenol alone, please note that the Percocet does have extra Tylenol in it, do not exceed 4000 mg Tylenol in a 24-hour time span. These medications can be constipating, please take a stool softener like MiraLAX while taking these medications, do not drive while taking the oxycodone/ acetaminophen (Tylenol). The other medication is a muscle relaxer, Norflex, 1 tab 2 times daily as needed for further muscle spasms. These medications have been electronically prescribed to the [place] [facility] located in the [employer] [facility]. You may also try hot packs to the area to see if this does not provide more pain relief. Please return to the ER at any time if symptoms should change or worsen. Sepsis Event Note - Evaluation Sepsis Screening Result: No Definite Risk - Focused Exam Vital Signs: Vital Signs Temp Pulse Resp BP Pulse Ox 07/11/19 15:00 97.8 F 80 18 125/75 97 Date Exam was Performed: 07/11/19 Time Exam was Performed: 16:01
== END 2019-07-11 16:20 | disposition home or self-care (01) ==
LOC: JD.ED 14:22
CPT/HCPCS: 99283

== ENCOUNTER 2020-03-31 16:00 | Emergency (ER) | payer OTHER ==
--- NOTE | 2020-03-31 16:37 | EDM.PDOC ---
ED HPI GENERAL MEDICAL PROBLEM - General Chief Complaint: Upper Extremity Injury/Pain Stated Complaint: RT HAND PAIN X 3 WEEKS Time Seen by Provider: 03/31/20 16:24 Source of Information: Reports: Patient, RN Notes Reviewed History Limitations: Reports: No Limitations - History of Present Illness INITIAL COMMENTS - FREE TEXT/NARRATIVE: Patient is a 34-year-old female presenting to the emergency department with complaints of pain to her right hand and wrist for the last 3 weeks. She has had no injury to the hand. She states the pain is fairly well localized to her right thumb and mildly in her right second finger. Movement of the wrist causes pain that radiates up her forearm. She denies any history of old injuries to this extremity. 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: Musculoskeletal History: Reports: Back Pain, Chronic, Fracture Other Musculoskeletal History: bulging disk to lower back Psychiatric History: Reports: Anxiety, Depression Endocrine/Metabolic History: Reports: Obesity/BMI 30+ - Infectious Disease History Infectious Disease History: Reports: Chicken Pox - Past Surgical History HEENT Surgical History: Reports: Tonsillectomy GI Surgical History: Reports: Cholecystectomy Female Surgical History: Reports: Tubal Ligation, Other (See Below) Other Female Surgeries/Procedures: irregular periods Neurological Surgical History: Reports: Other (See Below) Other Neurological Surgeries/Procedures: repair bulging disc, herniated disc Social & Family History - Family History Family Medical History: No Pertinent Family History - Tobacco Use Tobacco Use Status *Q: Never Tobacco User Second Hand Smoke Exposure: No - Caffeine Use Caffeine Use: Reports: None - Recreational Drug Use Recreational Drug Use: No - Living Situation & Occupation Living situation: Reports: Single Occupation: Employed Review of Systems - Review of Systems Review Of Systems: See Below Constitutional: Reports: No Symptoms Eyes: Reports: No Symptoms Ears: Reports: No Symptoms Nose: Reports: No Symptoms, Previous Injury Mouth/Throat: Reports: No Symptoms Respiratory: Reports: No Symptoms Cardiovascular: Reports: No Symptoms GI/Abdominal: Reports: No Symptoms Genitourinary: Reports: No Symptoms Musculoskeletal: Reports: Other (Right hand and wrist pain) ED EXAM, GENERAL - Physical Exam Exam: See Below Exam Limited By: No Limitations General Appearance: Alert, WD/WN, No Apparent Distress Respiratory/Chest: No Respiratory Distress, Lungs Clear, Normal Breath Sounds, No Accessory Muscle Use, Chest Non-Tender Cardiovascular: Normal Peripheral Pulses, Regular Rate, Rhythm, No Edema, No Gallop, No JVD, No Murmur, No Rub Extremities: Other (Tenderness to palpation from the lateral aspect of the right thumb extending up into the lateral wrist and forearm. Positive Burton test.) Neurological: Alert, Oriented, CN II-XII Intact, Normal Cognition, Normal Gait, Normal Reflexes, No Motor/Sensory Deficits Psychiatric: Normal Affect, Normal Mood Skin Exam: Warm, Dry, Intact, Normal Color, No Rash Course - Vital Signs Last Recorded V/S: Last Vital Signs Temp 97.5 F 03/31/20 16:06 Pulse 94 03/31/20 16:06 Resp 16 03/31/20 16:06 BP 142/83 H 03/31/20 16:06 Pulse Ox 97 03/31/20 16:06 - Re-Assessments/Exams Free Text/Narrative Re-Assessment/Exam: Patient is a 34-year-old female presenting to the emergency department with complaints of a 3-week history of pain to her right hand. Pain is localized to her right thumb, wrist, and extending up into her forearm. She has tenderness to the radial aspect of her right thumb, extending up into her wrist and forearm. Positive Burton test. Exam is consistent with a diagnosis of de Quervain's tenosynovitis. Will prescribe a course of prednisone and provide her with a thumb spica splint. Recommend follow-up in the clinic if symptoms do not resolve at the conclusion of prednisone treatment. Discharge instructions as documented. Departure - Departure Time of Disposition: 16:39 Disposition: Home, Self-Care 01 Condition: Good Clinical Impression: De Quervain's disease (tenosynovitis) - Discharge Information *PRESCRIPTION DRUG MONITORING PROGRAM REVIEWED*: No *COPY OF PRESCRIPTION DRUG MONITORING REPORT IN PATIENT YVROSE: No Prescriptions: predniSONE [Prednisone] 20 mg PO ASDIRECTED #15 tablet Instructions: De Quervain's Tenosynovitis Referrals: Edilma Cadena PA-C [Primary Care Provider] - Forms: ED Department Discharge Additional Instructions: You were seen in the emergency department today for 3-week history of pain to your right hand/thumb and/wrist. Saji findings are consistent with a diagnosis of de Quervain's tenosynovitis. This is an inflammation of the tendon extending from your thumb up in your forearm. You provided with a thumb spica splint. Wear this at all times during the day. You may remove it at night. The prescription for prednisone has been sent to [facility]. Take this medication as prescribed. If you are still experiencing significant discomfort at the conclusion of the steroid treatment, recommend follow-up in the clinic with your primary care provider. Return to ER as needed. Sepsis Event Note (ED) - Evaluation Sepsis Screening Result: No Definite Risk
== END 2020-03-31 17:13 | disposition home or self-care (01) ==
LOC: JD.ED 16:00
DX: M65.4 Radial styloid tenosynovitis [de Quervain] (principal); F41.9 Anxiety disorder, unspecified; F32.9 Major depressive disorder, single episode, unspecified; E66.9 Obesity, unspecified; Z68.41 Body mass index [BMI] 40.0-44.9, adult; Z88.1 Allergy status to other antibiotic agents; Z88.6 Allergy status to analgesic agent; Z88.0 Allergy status to penicillin; Z79.899 Other long term (current) drug therapy
CPT/HCPCS: 29125; 99283; 99283-25

== ENCOUNTER 2020-05-21 14:10 | Emergency (ER) | payer OTHER ==
--- NOTE | 2020-05-21 15:25 | EDM.PDOC ---
ED HPI GENERAL MEDICAL PROBLEM - General Chief Complaint: Headache Stated Complaint: HEADACHE Time Seen by Provider: 05/21/20 14:16 Source of Information: Reports: Patient History Limitations: Reports: No Limitations - History of Present Illness INITIAL COMMENTS - FREE TEXT/NARRATIVE: The patient presents with a headache and blurred vision. The patient says this has been going on for about 4 days. She says about 4 years ago she had this happen and she saw her eye doctor and he sent her over to the hospital and they rand some tests and found she had papilledema. I asked if she had pseudotumor cerebri or idiopathic intracranial hypertension and she does not remember those terms. She said she was on a medication for a few months and she felt better. She has not taken it for years and she has been doing good. She has no fever, chills, cough, congestion, runny nose, chest pain, shortness of breath, abdominal pain, nausea or vomiting. She has no numbness or weakness. Onset: Gradual Duration: Day(s): (4) Location: Reports: Head Quality: Reports: Ache Severity: Moderate Improves with: Reports: None Worsens with: Reports: None Associated Symptoms: Reports: Headaches. 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: Musculoskeletal History: Reports: Back Pain, Chronic, Fracture Other Musculoskeletal History: bulging disk to lower back Psychiatric History: Reports: Anxiety, Depression Endocrine/Metabolic History: Reports: Obesity/BMI 30+ - Infectious Disease History Infectious Disease History: Reports: Chicken Pox - Past Surgical History HEENT Surgical History: Reports: Tonsillectomy GI Surgical History: Reports: Cholecystectomy Female Surgical History: Reports: Tubal Ligation, Other (See Below) Other Female Surgeries/Procedures: irregular periods Neurological Surgical History: Reports: Other (See Below) Other Neurological Surgeries/Procedures: repair bulging disc, herniated disc Social & Family History - Family History Family Medical History: No Pertinent Family History - Tobacco Use Tobacco Use Status *Q: Never Tobacco User - Caffeine Use Caffeine Use: Reports: None - Recreational Drug Use Recreational Drug Use: No - Living Situation & Occupation Living situation: Reports: Single Occupation: Employed ED ROS GENERAL - Review of Systems Review Of Systems: See Below Constitutional: Reports: No Symptoms HEENT: Reports: No Symptoms Respiratory: Reports: No Symptoms Cardiovascular: Reports: No Symptoms Endocrine: Reports: No Symptoms GI/Abdominal: Reports: No Symptoms : Reports: No Symptoms Musculoskeletal: Reports: No Symptoms Skin: Reports: No Symptoms Neurological: Reports: Headache - Physical Exam Exam: See Below Exam Limited By: No Limitations General Appearance: Alert, No Apparent Distress Eye Exam: Bilateral Eye: EOMI, Normal Fundi Ears: Normal External Exam Nose: Normal Inspection Head Exam: Atraumatic, Normocephalic Neck: Normal Inspection Respiratory/Chest: No Respiratory Distress, Lungs Clear, Normal Breath Sounds Cardiovascular: Regular Rate, Rhythm, No Edema, No Murmur GI/Abdominal: Soft, Non-Tender, No Organomegaly, No Mass Neuro Exam (Abbreviated): Alert, Oriented, No Motor/Sensory Deficits Course - Vital Signs Last Recorded V/S: Last Vital Signs Temp 96.3 F L 05/21/20 14:14 Pulse 78 05/21/20 14:14 Resp 16 05/21/20 14:14 BP 125/85 05/21/20 14:14 Pulse Ox 97 05/21/20 14:14 - Orders/Labs/Meds Orders: Active Orders 24 hr Category Date Time Status Head wo Cont [CT] Stat Exams 05/21/20 14:29 Taken - Re-Assessments/Exams Free Text/Narrative Re-Assessment/Exam: 05/21/20 15:35 I have ordered a CT of her head. 05/21/20 15:[address] shows nothing acute. On her eye exam I did not notice any papilledema but it is not a dilated eye exam. I offered to try some acetazolamide and see if that helps and have her follow up with her butcher assistant and Edilma Cadena. Departure - Departure Time of Disposition: 15:45 Disposition: Home, Self-Care 01 Condition: Good Clinical Impression: Headache Qualifiers: Headache type: other headache syndrome Qualified Code(s): G44.89 - Other headache syndrome - Discharge Information *PRESCRIPTION DRUG MONITORING PROGRAM REVIEWED*: Not Applicable *COPY OF PRESCRIPTION DRUG MONITORING REPORT IN PATIENT YVROSE: Not Applicable Prescriptions: acetaZOLAMIDE [Diamox Sequels] 500 mg PO BID #40 cap.er Referrals: Edilma Cadena PA-C [Primary Care Provider] - 1 Week Forms: ED Department Discharge Additional Instructions: Try tylenol or motrin for your headache. Try the acetazolamide 2 times per day. Follow up with Edilma Cadena and your butcher assistant. Please return if you are worse. Sepsis Event Note (ED) - Evaluation Sepsis Screening Result: No Definite Risk - Focused Exam Vital Signs: Vital Signs Temp Pulse Resp BP Pulse Ox 05/21/20 14:14 96.3 F L 78 16 125/85 97 - My Orders Last 24 Hours: My Active Orders 05/21/20 14:29 Head wo Cont [CT] Stat - Assessment/Plan Last 24 Hours: My Active Orders 05/21/20 14:29 Head wo Cont [CT] Stat
--- NOTE | 2020-05-21 15:52 | CT ---
Head CT Technique: Multiple axial sections through the brain were obtained. Comparison: No prior intracranial imaging is available. Findings: Ventricles along with basal cisterns and sulci over the convexities appear within normal limits for the patient's age. No abnormal parenchymal densities are seen. No evidence of intracranial hemorrhage. No midline shift or mass-effect is appreciated. Bone window settings were reviewed. Visualized mastoid sinuses and paranasal sinuses showed nothing acute. No acute calvarial abnormality is appreciated. Impression: 1. Nothing acute is seen on noncontrast head CT exam. Diagnostic code #1 MTDD
== END 2020-05-21 15:59 | disposition home or self-care (01) ==
LOC: JD.ED 14:10
DX: G44.89 Other headache syndrome (principal); H53.8 Other visual disturbances; E66.9 Obesity, unspecified; Z68.25 Body mass index [BMI] 25.0-25.9, adult; Z88.1 Allergy status to other antibiotic agents; Z88.6 Allergy status to analgesic agent; Z88.0 Allergy status to penicillin
CPT/HCPCS: 70450; 70450-26; 99284; 99284-25

== ENCOUNTER 2021-05-09 08:06 | Emergency (ER) | payer BC, OTHER | END 2021-05-09 09:35 | disposition home or self-care (01) | LOC: JD.ED 08:06 | DX: S63.501A Unspecified sprain of right wrist, initial encounter (principal); E66.9 Obesity, unspecified; Z68.30 Body mass index [BMI] 30.0-30.9, adult; Z88.1 Allergy status to other antibiotic agents; Z88.8 Allergy status to other drugs, medicaments and biological substances; X50.0XXA Overexertion from strenuous movement or load, initial encounter | CPT/HCPCS: 73110-26-RT; 73110-RT; 99283 ==